=== PATIENT | male | born 1960 | race Caucasian/White ===

== ENCOUNTER 2017-05-23 21:31 | Emergency (ER) | payer SELFPAY ==
[2017-05-23] MEDS ORDERED: Lidocaine 2% Viscous Solution 15 ML Cup PO ONE (21:36)
[2017-05-23] MEDS ORDERED: Benzocaine 20% Topical Spray UD MUCMEM ONE (21:36)
--- NOTE | 2017-05-23 21:41 | EDM.PDOC ---
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 Patient says he does not drink alcohol or do any other drugs other than the meth and at approximately 7-8 this morning he used IV meth in his left antecubital fossa. He says he regrets doing that and feels that he may continue using and would like help with inpatient or outpatient care. Patient was brought by EMS but has no medical complaints such as fever chills chest pain shortness of breath abdominal pain nausea or vomiting. Patient also states he has tooth pain and his right upper premolar area O facial swelling and he has not been able to get to a dentist Review of systems: As per history of present illness and below otherwise all systems reviewed and negative. Past medical history: As per history of present illness and as reviewed below otherwise noncontributory. Surgical history: As per history of present illness and as reviewed below otherwise noncontributory. Social history: No reported history of drug or alcohol abuse. Family history: As per history of present illness and as reviewed below otherwise noncontributory. Physical exam: Gen.: Well-developed well-nourished man who is nontoxic and cooperative in the ED vital signs of the note by me. HEENT: Atraumatic, normocephalic, pupils reactive, negative for conjunctival pallor or scleral icterus, mucous membranes moist, throat clear, neck supple, nontender, trachea midline. There is no facial swelling and there is some mild tenderness with palpation of the right upper premolar molar area but no overt gum swelling is appreciated nor dental carry. There is some old fillings appreciated Lungs: Clear to auscultation, breath sounds equal bilaterally, chest nontender. Heart: S1S2, regular rhythm slightly tachycardic rate on my evaluation but no overt murmurs Abdomen: Soft, nondistended, nontender. NABS Pelvis: Deferred Genitourinary: Deferred. Rectal: Deferred. Extremities: Atraumatic, negative for cords or calf pain. Neurovascular unremarkable. Neuro: Awake, alert, oriented. Cranial nerves II through XII unremarkable. Cerebellum unremarkable. Motor and sensory unremarkable throughout. Exam nonfocal. Skin: No diaphoresis normal turgor and at the left antecubital fossa there is a faint area of ecchymosis from trauma from where he injected today but there is no erythema warmth or swelling. Patient has full range of motion at this arm. Diagnostics: [] Therapeutics: Dental balls I discussed with the patient that we do not have any inpatient resources here and that his closest resource would be [facility] in [place]. I told him that we do have some outpatient services we can give him referrals to. He is aware that because he is medically stable and does not need medical care that he will be discharged and will have to seek out some of these resources on his own. I will give him dental balls and amoxicillin for his tooth pain and also give him dental referrals. Impression: Dental pain, recent methamphetamine use seeking treatment stable Definitive disposition and diagnosis as appropriate pending reevaluation and review of above. ED ROS GENERAL - Review of Systems Review Of Systems: ROS reveals no pertinent complaints other than HPI. ED EXAM, GENERAL - Physical Exam Exam: See Below (See dictation) Course - Orders/Labs/Meds Orders: Active Orders 24 hr Category Date Time Status Benzocaine [Hurricaine One 20%] Med 05/23/17 21:36 Once 2 each MUCMEM ONETIME ONE Lidocaine 2% [Xylocaine 2% Viscous] Med 05/23/17 21:36 Once 15 ml PO ONETIME ONE Departure - Departure Time of Disposition: 21:40 Disposition: Home, Self-Care 01 Condition: Good Clinical Impression: Pain, dental, Methamphetamine use - Discharge Information Additional Instructions: The following information is given to patients seen in the emergency department who are being discharged to home. This information is to outline your options for follow-up care. We provide all patients seen in our emergency department with a follow-up referral. The need for follow-up, as well as the timing and circumstances, are variable depending upon the specifics of your emergency department visit. If you don't have a primary care physician on staff, we will provide you with a referral. We always advise you to contact your personal physician following an emergency department visit to inform them of the circumstance of the visit and for follow-up with them and/or the need for any referrals to a consulting specialist. The emergency department will also refer you to a specialist when appropriate. This referral assures that you have the opportunity for followup care with a specialist. All of these measure are taken in an effort to provide you with optimal care, which includes your followup. Under all circumstances we always encourage you to contact your private physician who remains a resource for coordinating your care. When calling for followup care, please make the office aware that this follow-up is from your recent emergency room visit. If for any reason you are refused follow-up, please contact the [facility] emergency department at and ask to speak to the emergency department charge nurse. [facility] Primary care- Internal Medicine and Family [address] [id number] Please use dental balls as shown for dental pain as well as taking the amoxicillin. Please use resources given to today to seek out outpatient or inpatient treatment as we discussed. Please refrain from using drugs. Return to ER as needed and as discussed. You can go to [facility] to be evaluated for possible inpatient care as we discussed - My Orders Last 24 Hours: My Active Orders 05/23/17 21:36 Benzocaine [Hurricaine One 20%] 2 each MUCMEM ONETIME ONE Lidocaine 2% [Xylocaine 2% Viscous] 15 ml PO ONETIME ONE - Assessment/Plan Last 24 Hours: My Active Orders 05/23/17 21:36 Benzocaine [Hurricaine One 20%] 2 each MUCMEM ONETIME ONE Lidocaine 2% [Xylocaine 2% Viscous] 15 ml PO ONETIME ONE
== END 2017-05-23 22:04 | disposition home or self-care (01) ==
LOC: MW.ED 21:31
DX: K08.89 Other specified disorders of teeth and supporting structures (principal); F15.90 Other stimulant use, unspecified, uncomplicated
CPT/HCPCS: 99283